=== PATIENT | female | born 1970 | race Caucasian/White ===

== ENCOUNTER 2020-01-25 00:26 | Outpatient (CLI) | payer BC, SELFPAY ==
[2020-01-25 20:23] LABS: SARS-CoV-2 RNA PCR Negative
== END 2020-01-25 00:27 | disposition home or self-care (01) ==
LOC: ANHCOVIDDT 00:26
PROVIDERS: Visit Provider Internal Medicine Gastroenterology
DX: Z01.812 Encounter for preprocedural laboratory examination (principal); Z20.828 Contact with and (suspected) exposure to other viral communicable diseases
CPT/HCPCS: 87635; C9803; U0003

== ENCOUNTER 2020-01-27 01:24 | Day surgery (SDC) | payer BC, SELFPAY ==
[2020-01-14 14:45] VITALS: BMI 25.9
[2020-01-27] MEDS: LACTATED RINGERS 1,000 ML 150 ML IV CONT (08:52)
--- NOTE | 2020-01-27 09:07 | P.HP_ITS ---
History of Present Illness History of Present Illness Consent: Risks, benefits, and alternatives have been discussed and questions answered. Patient agrees to proceed with procedure. Chief complaint: Rectal Bleeding Narrative: Ghada Roman is a 49 year old female With rectal bleeding. a few weeks ago she began to see blood in her stools. COUNTS INCLUDE 234 BEDS AT THE [facility] Past Medical History Medical History Abnormal uterine bleeding Anemia At the time of her abnormal uterine bleeding. Appendicitis Arthritis L foot - Her hall porter is Dr Zarco Fibroids GERD (gastroesophageal reflux disease) Interstitial cystitis Her urologist is Dr Denise Gonsales at [facility] Surgical History Surgical History H/O cystoscopy H/O: hysterectomy 2013 due to uterine fibroids and AUB History of appendectomy Hx of tonsillectomy Family History Family History Father Hypertension Grandparent Cerebral aneurysm Other Diabetes mellitus Family history of arthritis Family history of cardiovascular disease Social History Social History Social History: Ms. Roman lives at home in [place] with her . She has two children that are grown and out of the house. 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 She reports 5 to 7 glasses of wine per week. Never smoker, denies substance use. Her PCP is Dr Miriam Bond at [facility]. She designates her , Jasiel, as her surrogate decision maker. She wishes to be full code status. Smoking status: Never smoker Alcohol intake: current Drinks per week: 7 Substance use: never Gender identity (if verbalized by the patient): Female Sexual Orientation (if Verbalized by the Patient): Straight or Heterosexual Spiritual care concerns: No Agree to blood products: Yes Meds Home Medications and Allergies Home Medications Medication Instructions Recorded Confirmed Type Elmiron 100 mg PO BID 05/14/19 05/14/19 History eszopiclone [Lunesta] 1 mg PO HS PRN 05/14/19 05/14/19 History omeprazole 20 mg PO BID 12/05/19 08/19/20 History Allergies Allergy/AdvReac Type Severity Reaction Status Date / Time No Known Allergies Allergy Unverified 01/27/20 08:33 Exam Resp: Auscultation: clear to auscultation bilaterally Cardio: Rate: regular rate Rhythm: regular rhythm GI: GI Palp: Yes Soft to palpation and No Tenderness to palpation present (GI) Assessment and Plan Assessment and plan (1) Blood in stool: Code(s): K92.1 - Melena Status: Acute Assessment and Plan: Colonoscopy with possible biopsy or polypectomy or cautery or injection of substances.
--- NOTE | 2020-01-27 09:23 | P.PNAN_ITS ---
Anes - Initial Pre Proc Eval Procedure: Operation Date: 01/27/20 09:30 Proposed Procedures p Colonoscopy - Aime Khna MD Date/Time: 01/27/20 09:23 Surgeon: Aime Khan MD Pre Op Diagnosis: Rectal Bleeding Patient Data Age: 49 Gender: F Height: 5 ft 6 in Weight: 73.8 kg Allergies Allergy/AdvReac Type Severity Reaction Status Date / Time No Known Allergies Allergy Unverified 01/27/20 08:33 Home Medications Medication Instructions Recorded Confirmed Type Elmiron 100 mg PO BID 05/14/19 05/14/19 History eszopiclone [Lunesta] 1 mg PO HS PRN 05/14/19 05/14/19 History omeprazole 20 mg PO BID 05/14/19 01/27/20 History Patient hx anesthesia problems: none Family hx anesthesia problems: none PMFSH Past Medical History Medical History Abnormal uterine bleeding Anemia At the time of her abnormal uterine bleeding. Appendicitis Arthritis L foot - Her community cultural development officer is Dr Zarco Fibroids GERD (gastroesophageal reflux disease) Interstitial cystitis Her urologist is Dr Denise Gonsales at [facility] Surgical History Surgical History H/O cystoscopy H/O: hysterectomy 2013 due to uterine fibroids and AUB History of appendectomy Hx of tonsillectomy Family History Family History Father Hypertension Grandparent Cerebral aneurysm Other Diabetes mellitus Family history of arthritis Family history of cardiovascular disease Social History Social History Social History: Ms. Roman lives at home in [place] with her . She has two children that are grown and out of the house. 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 She reports 5 to 7 glasses of wine per week. Never smoker, denies substance use. Her PCP is Dr Miriam Bond at [facility]. She designates her , Jasiel, as her surrogate decision maker. She wishes to be full code status. Smoking status: Never smoker Alcohol intake: current Drinks per week: 7 Substance use: never Gender identity (if verbalized by the patient): Female Sexual Orientation (if Verbalized by the Patient): Straight or Heterosexual Spiritual care concerns: No Agree to blood products: Yes Anes - Eval Final PreProcedure Day of Procedure 01/27/20 09:23 Patient weight: normal Heart: regular rate and rhythm Lungs: clear to auscultation Airway: Mallampati scale class III Neurological: alert and oriented Last oral intake: >/= 8 hours ASA classification: III Emergent: no Anesthetic plan: proceed Anesthesia type and monitoring: general GIVS and standard monitoring Informed Consent: The patient's anesthetic plan and its attendant risks and benefits were discussed with the patient/family/POA. Questions were solicited and answers provided to the satisfaction of the patient/family/POA.
[2020-01-27 09:42] VITALS: BP 111/71; PULSE 68; RESP 18; O2SAT 99
[2020-01-27 09:52] VITALS: BP 115/76; PULSE 63; RESP 18; O2SAT 99
[2020-01-27 10:02] VITALS: BP 118/70; PULSE 65; RESP 18; O2SAT 99
== END 2020-01-27 10:20 | disposition home or self-care (01) ==
PROVIDERS: PCP Family Medicine; Visit Provider Internal Medicine Gastroenterology
PROC: 0DJD8ZZ Inspection of Lower Intestinal Tract, Via Natural or Artificial Opening Endoscopic (ICD-10-PCS; CPT 45378; principal; 2020-01-27 09:30)
DX: K62.5 Hemorrhage of anus and rectum (principal); K64.8 Other hemorrhoids; K21.9 Gastro-esophageal reflux disease without esophagitis
CPT/HCPCS: 45378; J2704; J7120

== ENCOUNTER 2022-08-30 08:00 | Outpatient (NON) | payer OTHER, SELFPAY | END 2022-08-30 08:01 | disposition home or self-care (01) | LOC: ANHLAB 08-31 11:38 | PROVIDERS: PCP Family Medicine; Visit Provider Nurse Practitioner | DX: D17.1 Benign lipomatous neoplasm of skin and subcutaneous tissue of trunk (principal) | CPT/HCPCS: 88304 ==

== ENCOUNTER 2023-01-04 00:23 | Day surgery (SDC) | payer OTHER, SELFPAY ==
[2022-12-25 14:54] VITALS: BMI 29.1
--- NOTE | 2023-01-03 16:10 | PM.HPGS ---
History of Present Illness History of Present Illness Consent: Risks, benefits, and alternatives have been discussed and questions answered. Patient agrees to proceed with procedure. Chief complaint: Cough, Dysphagia Narrative: Ghada Roman is a 52 year old female referred for investigation of dysphagia. When she swallows she often chokes, or coughs. Review of Systems Review of Systems: All systems reviewed & are unremarkable except as noted in HPI and below PMFSH Past Medical History Medical History Abnormal uterine bleeding Anemia At the time of her abnormal uterine bleeding. Appendicitis Arthritis L foot - Her triage registered nurse is Dr Zarco BMI 28.0-28.9,adult Fibroids GERD (gastroesophageal reflux disease) Interstitial cystitis Her urologist is Dr Denise Gonsales at [facility] Surgical History Surgical History H/O cystoscopy H/O: hysterectomy 2013 due to uterine fibroids and AUB History of appendectomy History of foot surgery Hx of tonsillectomy Family History Family History Father Hypertension Hyperlipidemia Grandparent Cerebral aneurysm Hyperlipidemia Osteoporosis Mother Diabetes mellitus Hyperlipidemia Sibling Autoimmune disease Other Family history of arthritis Family history of cardiovascular disease Social History Social History Social History: Ms. Roman lives at home in [place] with her . She has two children that are grown and out of the house. 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 She reports 5 to 7 glasses of wine per week. Never smoker, denies substance use. Her PCP is Dr Miriam Bond at [facility]. She designates her , Jasiel, as her surrogate decision maker. She wishes to be full code status. 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 Gender identity (if verbalized by the patient): Female Sexual Orientation (if Verbalized by the Patient): Straight or Heterosexual Spiritual care concerns: No Agree to blood products: Yes Meds Home Medications and Allergies Home Medications Medication Instructions Recorded Confirmed Type eszopiclone 1 mg tablet (Lunesta) 2 mg PO HS PRN Sleep 05/14/19 12/25/22 History [facility] vitamin 1 tab-cap PO DAILY 07/25/21 12/25/22 History cetirizine 10 mg capsule (Zyrtec) 10 mg PO DAILY PRN Allergy Symptoms 12/03/22 12/25/22 History estradiol 0.5 mg tablet 0.5 mg PO DAILY #90 tabs 12/03/22 01/04/23 Rx magnesium L-threonate 48 mg 288 mg PO DAILY 12/03/22 12/25/22 History magnesium (667 mg) capsule naproxen sodium 220 mg capsule 220 mg PO BID 12/03/22 12/25/22 History omega 7-dwy-iih-fish oil 100 2 cap PO DAILY 12/03/22 12/25/22 History mg-160 mg-1,000 mg capsule (Fish Oil) esomeprazole magnesium 40 mg 40 mg PO DAILY 12/25/22 01/04/23 History capsule,delayed release Allergies Allergy/AdvReac Type Severity Reaction Status Date / Time No Known Allergies Allergy Verified 01/04/23 09:35 Exam Const: General: alert Orientation/consciousness: patient oriented x3 Resp: Auscultation: clear to au
[2023-01-04 09:37] VITALS: BP 104/69; PULSE 77; RESP 18; O2SAT 99; BMI 29.0
[2023-01-04] MEDS: LACTATED RINGERS 1,000 ML 150 ML IV CONT (09:40)
--- NOTE | 2023-01-04 09:57 | WPDANESEPPF ---
Anes - Initial Pre Proc Eval Procedure: Operation Date: 01/04/23 10:30 Proposed Procedures p Esophagogastroduodenoscopy - Aime Khan MD Date/Time: 01/04/23 09:57 Surgeon: Aime Khan MD Pre Op Diagnosis: Cough, Dysphagia Patient Data Age: 52 Gender: F Height: 1.65 m Weight: 79.1 kg Last Vital Signs Pulse 77 01/04/23 09:37 Resp 18 01/04/23 09:37 BP 104/69 01/04/23 09:37 Pulse Ox 99 01/04/23 09:37 O2 Del Method Room Air 01/04/23 09:37 Allergies Allergy/AdvReac Type Severity Reaction Status Date / Time No Known Allergies Allergy Verified 01/04/23 09:35 Home Medications Medication Instructions Recorded Confirmed Type eszopiclone 1 mg tablet (Lunesta) 2 mg PO HS PRN Sleep 05/14/19 12/25/22 History [facility]health vitamin 1 tab-cap PO DAILY 07/25/21 12/25/22 History cetirizine 10 mg capsule (Zyrtec) 10 mg PO DAILY PRN Allergy Symptoms 12/03/22 12/25/22 History estradiol 0.5 mg tablet 0.5 mg PO DAILY #90 tabs 12/03/22 01/04/23 Rx magnesium L-threonate 48 mg 288 mg PO DAILY 12/03/22 12/25/22 History magnesium (667 mg) capsule naproxen sodium 220 mg capsule 220 mg PO BID 12/03/22 12/25/22 History omega 0-iny-rki-fish oil 100 2 cap PO DAILY 12/03/22 12/25/22 History mg-160 mg-1,000 mg capsule (Fish Oil) esomeprazole magnesium 40 mg 40 mg PO DAILY 12/25/22 01/04/23 History capsule,delayed release Patient hx anesthesia problems: none Family hx anesthesia problems: none Results Review: All pre-operative results and documents have been reviewed as part of the pre-operative evaluation. [facility] Past Medical History Medical History (Updated 12/03/22 @ 10:08 by YAQUELIN Sterling) Abnormal uterine bleeding Anemia At the time of her abnormal uterine bleeding. Appendicitis Arthritis L foot - Her potato grader is Dr Zarco BMI 28.0-28.9,adult Fibroids GERD (gastroesophageal reflux disease) Interstitial cystitis Her urologist is Dr Denise Gonsales at [facility] Surgical History Surgical History H/O cystoscopy H/O: hysterectomy 2013 due to uterine fibroids and AUB History of appendectomy History of foot surgery Hx of tonsillectomy Family History Family History Father Hypertension Hyperlipidemia Grandparent Cerebral aneurysm Hyperlipidemia Osteoporosis Mother Diabetes mellitus Hyperlipidemia Sibling Autoimmune disease Other Family history of arthritis Family history of cardiovascular disease Social History Social History Social History: Ms. Roman lives at home in [place] with her . She has two children that are grown and out of the house. 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 She reports 5 to 7 glasses of wine per week. Never smoker, denies substance use. Her PCP is Dr Miriam Bond at [facility]. She designates her , Jasiel, as her surrogate decision maker. She wishes to be full code status. 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
[2023-01-04 10:47] VITALS: BP 128/69; PULSE 77; RESP 28; O2SAT 100
[2023-01-04 10:57] VITALS: BP 105/50; PULSE 69; RESP 20; O2SAT 100
[2023-01-04 11:07] VITALS: BP 115/72; PULSE 69; RESP 18; O2SAT 100
== END 2023-01-04 11:15 | disposition home or self-care (01) ==
PROVIDERS: PCP Family Medicine; Visit Provider Internal Medicine Gastroenterology
PROC: 0DJ08ZZ Inspection of Upper Intestinal Tract, Via Natural or Artificial Opening Endoscopic (ICD-10-PCS; CPT 43235; principal; 2023-01-04 10:30)
DX: K21.9 Gastro-esophageal reflux disease without esophagitis (principal)
CPT/HCPCS: 43239; 87081; 88305; J2704; J7120

== ENCOUNTER 2024-05-09 22:17 | Emergency (ER) | payer BC, SELFPAY ==
[2024-05-09 22:18] VITALS: BP 152/90; PULSE 100; RESP 16; TEMP 36.5; O2SAT 100
[2024-05-09 23:18] VITALS: PULSE 96; RESP 16; O2SAT 98
--- NOTE | 2024-05-09 23:29 | ED_ITS ---
HPI - Animal Bite General Chief Complaint: Animal Bite Stated Complaint: dog bite left hand Time Seen by Provider: 05/09/24 23:12 History of Present Illness HPI narrative: 54-year-old otherwise healthy female presenting to the emergency department for evaluation of a dog bite to her left hand. It was her own dog at home and the dog is up-to-date on vaccines including rabies. Patient states that this occurred sometime yesterday and was several bites to the left hand without any significant bleeding. Went to bed normally but noted that she had some swelling this morning as well as some pus that was starting to drain from the thenar eminence wound when she tried to pop and squeeze at it. No significant pain but there is swelling in the area. No restricted range of motion. No fevers, neuropathy or weakness. She was otherwise in her normal state of health. Tried some ibuprofen and cold compresses which did alleviate most of her symptoms. She is concerned that could be starting infected so she came to the ER for evaluation. Related Data Home Medications Medication Instructions Recorded Confirmed [facility]uhealth vitamin 1 tab-cap PO DAILY 07/25/21 12/16/23 cetirizine 10 mg capsule (Zyrtec) 10 mg PO DAILY PRN Allergy Symptoms 12/03/22 12/16/23 magnesium L-threonate 48 mg 288 mg PO DAILY 12/03/22 12/16/23 magnesium (667 mg) capsule naproxen sodium 220 mg capsule 220 mg PO BID 12/03/22 12/16/23 omega 1-vfb-gnt-fish oil 100 2 cap PO DAILY 12/03/22 12/16/23 mg-160 mg-1,000 mg capsule (Fish Oil) esomeprazole magnesium 20 mg 20 mg PO DAILY 01/28/23 12/16/23 capsule,delayed release calcium 600 mg (as 1 tablet PO DAILY 12/16/23 12/16/23 carbonate)-vitamin D3 20 mcg (800 unit) tablet (Caltrate with Vitamin D3) Allergies Allergy/AdvReac Type Severity Reaction Status Date / Time No Known Allergies Allergy Verified 05/09/24 22:20 Review of Systems Review of Systems: As otherwise reviewed in [facility] Past Medical History Medical History Abnormal uterine bleeding Anemia At the time of her abnormal uterine bleeding. Appendicitis Arthritis L foot - Her help desk intern is Dr Zarco BMI 28.0-28.9,adult Fibroids GERD (gastroesophageal reflux disease) Interstitial cystitis Her urologist is Dr Denise Gonsales at [facility] Surgical History Surgical History H/O cystoscopy H/O: hysterectomy 2013 due to uterine fibroids and AUB History of appendectomy History of foot surgery Hx of tonsillectomy Family History Family History Father Hypertension Hyperlipidemia Grandparent Cerebral aneurysm Hyperlipidemia Osteoporosis Mother Diabetes mellitus Hyperlipidemia Sibling Autoimmune disease Other Family history of arthritis Family history of cardiovascular disease Social History Social History Social History: Ms. Roman lives at home in [place] with her . She has two children that are grown and out of the house. 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 She reports 5 to 7 glasses of wine per week. Never smoker, denies substance use. Her PCP is Dr Miriam Bond at [facility]. She designates her , Jasiel, as her surrogate decision maker. She wishes to be full code status. Smoking status: Never smoker Second hand tobacco smoke exposure: No Alcohol intake: current Drinks per week: 3 Alcohol use details: Socially Substance use: never Substance use type: does not use Do You Feel Safe in your Home?: Yes Lack of Transportation: No Lack of Food: Never True Current Housing: I Have Housing Concerned About Future Housing: No Difficulty Paying Gas/Electric Bills: No Difficulty Paying for Meds: No Currently Unemployed: No Education: Master's Degree or Higher Difficulty w/ Childcare or Family Care: No Living arrangements: other Additional living arrangements comments: With Occupation/Education: occupation 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 Mucous membranes moist. NECK: Supple. CHEST: [Clear to auscultation. No respiratory distress.] HEART: [Regular rate and rhythm]. No murmur heard. [Normal peripheral pulses.] ABDOMEN: [Soft, nondistended], [nontender], [No rigidity or guarding] EXTREMITIES: The left upper extremity has some swelling and tenderness over the thenar eminence on the left palm, very small 0.5 cm skin break with some minor expression of serosanguineous as well as minor pus. No significant tenderness with palpation. No overlying erythema. Some petechiae were patient was sq ueezing the wound earlier. No obvious deep tissue involvement or exposed musculature tendons. She has full range of motion of the hand, senior policy advisor strength equal, able to flex extend at each digit. No restricted range of motion. No significant tenderness to palpation. SKIN: Warm, dry, no rash. NEURO: [No focal deficits]. Alert and oriented [x3.] PSYCH: [Normal mood and affect.] Course Vital Signs Vital signs: Vital Signs Temperature 36.5 C 05/09/24 22:18 Pulse Rate 100 05/09/24 22:18 Respiratory Rate 16 05/09/24 22:18 Blood Pressure 152/90 H 05/09/24 22:18 Pulse Oximetry 100 05/09/24 22:18 Oxygen Delivery Room Air 05/09/24 22:18 Temperature 36.5 C 05/09/24 22:18 Pulse Rate 96 05/09/24 23:18 Respiratory Rate 16 05/09/24 23:18 Blood Pressure 152/90 H 05/09/24 22:18 Pulse Oximetry 98 05/09/24 23:18 Oxygen Delivery Room Air 05/09/24 22:18 MDM - Animal Bite MDM Narrative Medical decision making narrative: 54-year-old female presenting for evaluation of a dog bite to the left hand. This occurred last night and it was her own house dog which is up-to-date on vaccines. She knows some minor expression of pus and was concerned that could be getting infected. She is afebrile and her pain is well controlled with just Tylenol and ice pack. She does have evidence of a recent bite but no significant wound dehiscence or deep tissue or tendon or muscular involvement. I was able to express a very minor amount of pus and serosanguineous drainage. Soft compartments, minor petechiae overlying the wound but no erythema, fluctuance or cellulitic skin changes. Her dog is up-to-date on vaccines and patient has no concerns for rabies at this time. Given the sensitive nature of the area that got bit she does require antibiotics for continued treatment. She was given a dose of Augmentin here in the emergency department and will be discharged home with a 7 day course. I gave her strict return precautions including developing any significant swelling, worsening drainage, neuropathy, restricted range of motion or any other concerns to her left hand and that she should seek re-evaluation. She can otherwise safely follow up with her regular primary care provider for this. Patient expressed understanding of these instructions and safely discharged home at this time. Medical Records Attestation: I reviewed the patient's medical records. Discharge Plan Discharge Clinical Impression: Infected dog bite of hand Patient Disposition: Home, Self-Care Condition: Stable Instructions: Antibiotic Form, Animal Bite (ED) Additional Instructions: strict return precautions including developing any significant swelling, worsening drainage, fever, neuropathy, restricted range of motion or any other concerns to her left hand and that she should seek re-evaluation. Continue taking her antibiotics as prescribed any can take ibuprofen or Tylenol for any aches or swelling as well as ice pack 20 minutes at time for the next 48 hours. Follow-up with your regular doctor or return to the ED with any concerns. Prescriptions: New amoxicillin-pot clavulanate 875-125 mg tablet 1 tablet PO Q12H 7 Days Qty: 14 0RF No Action [facility] vitamin 1 tab-cap PO DAILY naproxen sodium 220 mg capsule 220 mg PO BID Zyrtec 10 mg capsule 10 mg PO DAILY PRN (Reason: Allergy Symptoms) magnesium L-threonate 48 mg magnesium (667 mg) capsule 288 mg PO DAILY Fish Oil 100-160-1,000 mg capsule 2 cap PO DAILY calcium carbonate-vitamin D3 [Caltrate with Vitamin D3] 600 mg-20 mcg (800 unit) tablet 1 tablet PO DAILY esomeprazole magnesium 20 mg capsule,delayed release(DR/EC) 20 mg PO DAILY eszopiclone [Lunesta] 2 mg tablet 2 mg PO QHS Qty: 30 2RF Follow-up/Referrals: Andrea Taylor MD [Primary Care Provider] - Time of Disposition: 23:37
[2024-05-09] MEDS: AMOXICILLIN/CLAVULANATE K 875-125 MG TAB 1 TABLET PO (23:39)
[2024-05-09 23:40] VITALS: BP 150/83; PULSE 96; RESP 16; O2SAT 100
== END 2024-05-09 23:57 | disposition home or self-care (01) ==
PROVIDERS: Emergency Provider Student in an Organized Health Care Education/Training Program; PCP Family Medicine
DX: S61.452A Open bite of left hand, initial encounter (principal); L08.9 Local infection of the skin and subcutaneous tissue, unspecified; N30.10 Interstitial cystitis (chronic) without hematuria; M19.072 Primary osteoarthritis, left ankle and foot; K21.9 Gastro-esophageal reflux disease without esophagitis; Z86.2 Personal history of diseases of the blood and blood-forming organs and certain disorders involving the immune mechanism; Z90.710 Acquired absence of both cervix and uterus; Z79.899 Other long term (current) drug therapy; W54.0XXA Bitten by dog, initial encounter
CPT/HCPCS: 99283; A9270